=== PATIENT | male | born 1960 | race Two or more races ===

== ENCOUNTER 2025-07-25 13:28 | Inpatient (IN) | payer OTHER ==
[~2025-07-25] VITALS: Ht 175.3 cm; Wt 86.2 kg
[~2025-07-25 13:28] MED LIST: LORAZEPAM 1 MG TABLET FOR AGITATION PO PRN
[2025-07-25] MEDS ORDERED: ACETAMINOPHEN ES 500 MG TABLET PO PRN (17:30)
[2025-07-25] MEDS ORDERED: MAGNESIUM HYDROXIDE 30 ML UDC PO PRN (17:30)
[2025-07-25] MEDS ORDERED: IBUPROFEN 200 MG TABLET PO PRN (17:30)
[2025-07-25] MEDS ORDERED: MAG HYDROX/AL HYDROX/SIMETH 30 ML UDC PO PRN (17:30)
[2025-07-25] MEDS ORDERED: LORAZEPAM 1 MG TABLET FOR AGITATION PO PRN (17:30)
[2025-07-25] MEDS: RISPERDAL 3 MG PO SCH (22:00)
[2025-07-26 08:00] VITALS: BP 139/75; TEMP 98.1; O2SAT 97
[2025-07-26 20:00] VITALS: BP 124/78; TEMP 98.1; O2SAT 96
[2025-07-27 09:00] VITALS: BP 140/90; TEMP 97.9; O2SAT 98
[2025-07-27 20:00] VITALS: BP 133/73; TEMP 97.9; O2SAT 97
[2025-07-28 20:00] VITALS: BP 127/80; TEMP 98.1; O2SAT 96
[2025-07-29 08:03] VITALS: BP 131/82; TEMP 98; O2SAT 98
[2025-07-29 17:45] VITALS: BP 125/83; TEMP 98.3; O2SAT 98
[2025-07-29 20:00] VITALS: BP 122/82; TEMP 97.9; O2SAT 96
[2025-07-30 08:00] VITALS: BP 121/94; TEMP 97.9; O2SAT 95
[2025-07-30 16:45] VITALS: BP 119/93; TEMP 98.2; O2SAT 95
[2025-07-30 20:16] VITALS: BP 134/80; TEMP 98.5; O2SAT 97
[2025-07-31 08:00] VITALS: BP 125/75; TEMP 97.9; O2SAT 96
[2025-07-31 19:38] VITALS: BP 125/82; TEMP 97.9; O2SAT 96
[2025-07-31] MEDS: ZOLPIDEM TARTRATE 10 MG TABLET PO PRN (20:47)
[2025-08-01 08:17] VITALS: BP 121/78; TEMP 98; O2SAT 95
[2025-08-01 20:00] VITALS: BP 118/77; TEMP 98.4; O2SAT 97
[2025-08-02 20:00] VITALS: BP 124/82; TEMP 98.4; O2SAT 99
[2025-08-03 08:00] VITALS: BP 115/85; TEMP 98.6; O2SAT 97
[2025-08-03 20:00] VITALS: BP 113/72; TEMP 98.2; O2SAT 97
[2025-08-04 08:00] VITALS: BP 109/63; TEMP 98.3; O2SAT 98
[2025-08-04 20:00] VITALS: BP 112/72; TEMP 98.1; O2SAT 97
[2025-08-05 08:15] VITALS: BP 124/86; TEMP 97.9; O2SAT 95
[2025-08-05 20:00] VITALS: BP 116/80; TEMP 98.4; O2SAT 97
[2025-08-06 07:40] VITALS: BP 112/72; TEMP 98.5; O2SAT 98
[2025-08-06 20:00] VITALS: BP 113/64; TEMP 98.2; O2SAT 96
[2025-08-07 20:00] VITALS: BP 107/73; TEMP 98.1; O2SAT 96
[2025-08-08 08:00] VITALS: BP 114/82; TEMP 98.1; O2SAT 96
[2025-08-08] MEDS ORDERED: LORAZEPAM 1 MG TABLET FOR AGITATION PO PRN (13:00)
[2025-08-08 20:00] VITALS: BP 109/74; TEMP 98.6; O2SAT 96
[2025-08-08] MEDS: INVEST MED OTSUKA 382-201-00035 PO SCH (20:00)
[2025-08-09 20:00] VITALS: BP 110/76; TEMP 97.9; O2SAT 95
[2025-08-10 08:00] VITALS: BP 129/75; TEMP 97.9; O2SAT 96
[2025-08-10 20:00] VITALS: BP 132/77; TEMP 98.2; O2SAT 97
[2025-08-11 08:00] VITALS: BP 132/79; TEMP 98.4; O2SAT 99
[2025-08-11 20:00] VITALS: BP 117/61; TEMP 98.2; O2SAT 96
[2025-08-12 20:00] VITALS: BP 117/70; TEMP 98.4; O2SAT 96
[2025-08-12] MEDS: ZOLPIDEM TARTRATE 10 MG TABLET PO PRN (22:00)
[2025-08-13 08:22] VITALS: BP 139/88; TEMP 98.9; O2SAT 96
[2025-08-13 20:00] VITALS: BP 121/76; TEMP 98.1; O2SAT 95
[2025-08-14 20:11] VITALS: BP 127/75; TEMP 98.2; O2SAT 96
[2025-08-15 17:50] VITALS: BP 118/83; TEMP 98.6; O2SAT 97
[2025-08-15 20:00] VITALS: BP 126/84; TEMP 98.3; O2SAT 99
[2025-08-16 08:15] VITALS: BP 122/67; TEMP 97.9; O2SAT 96
[2025-08-16] MEDS ORDERED: LORAZEPAM 1 MG TABLET FOR AGITATION PO PRN (13:00)
[2025-08-16 20:00] VITALS: BP 119/66; TEMP 98.2; O2SAT 100
[2025-08-16] MEDS: ZOLPIDEM TARTRATE 10 MG TABLET PO PRN (21:00)
[2025-08-17 18:54] VITALS: BP 119/66; TEMP 98.4; O2SAT 100
[2025-08-17 20:00] VITALS: BP 127/75; TEMP 98.4; O2SAT 97
[2025-08-18 20:00] VITALS: BP 106/70; TEMP 98; O2SAT 97
[2025-08-19 08:00] VITALS: BP 110/72; TEMP 98.7; O2SAT 96
[2025-08-19 18:00] VITALS: BP 115/68; TEMP 98.4; O2SAT 98
[2025-08-19 20:00] VITALS: BP 108/70; TEMP 98.1; O2SAT 96
[2025-08-20 08:00] VITALS: BP 110/74; TEMP 98.1; O2SAT 97
[2025-08-20 16:30] VITALS: BP 116/82; TEMP 98.2; O2SAT 98
[2025-08-20 20:00] VITALS: BP 116/80; TEMP 98.2; O2SAT 98
[2025-08-21 08:00] VITALS: BP 113/70; TEMP 98.1; O2SAT 96
[2025-08-21 15:30] VITALS: BP 117/72; TEMP 98.4; O2SAT 96
[2025-08-21 20:00] VITALS: BP 121/76; TEMP 98.1; O2SAT 98
[2025-08-22 08:00] VITALS: BP 107/70; TEMP 98.2; O2SAT 98
[2025-08-22 19:20] VITALS: BP 120/82; TEMP 98.2; O2SAT 98
[2025-08-22 20:00] VITALS: BP 114/74; TEMP 98.2; O2SAT 96
[2025-08-23] MEDS ORDERED: LORAZEPAM 1 MG TABLET FOR AGITATION PO PRN (13:00)
[2025-08-23 20:00] VITALS: BP 129/71; TEMP 97.8; O2SAT 98
[2025-08-23] MEDS: ZOLPIDEM TARTRATE 10 MG TABLET PO PRN (21:12)
[2025-08-24 20:00] VITALS: BP 109/66; TEMP 98.2; O2SAT 96
[2025-08-25 08:15] VITALS: BP 114/74; TEMP 97.9; O2SAT 96
[2025-08-25 18:17] VITALS: BP 119/82; TEMP 97.8
[2025-08-25 20:00] VITALS: BP 115/71; TEMP 98.2; O2SAT 97
[2025-08-26 08:16] VITALS: BP 110/74; TEMP 97.9; O2SAT 97
[2025-08-26 20:00] VITALS: BP 127/76; TEMP 98.2; O2SAT 97
[2025-08-27 08:00] VITALS: BP 125/72; TEMP 98.2; O2SAT 97
[2025-08-27 20:13] VITALS: BP 116/77; TEMP 97.7; O2SAT 100
[2025-08-28 08:00] VITALS: BP 108/73; TEMP 97.9; O2SAT 96
[2025-08-28 20:49] VITALS: BP 106/72; TEMP 98.4; O2SAT 96
[2025-08-29 08:00] VITALS: BP 111/79; TEMP 97.7; TEMP 97.9
[2025-08-29 20:00] VITALS: BP 124/69; TEMP 98.1; O2SAT 98
[2025-08-30 07:39] VITALS: BP 131/83; TEMP 98.1; O2SAT 97
[2025-08-30] MEDS ORDERED: LORAZEPAM 1 MG TABLET FOR AGITATION PO PRN (13:00)
[2025-08-30 17:00] VITALS: BP 112/83; TEMP 98.3; O2SAT 97
[2025-08-30 20:00] VITALS: BP 112/68; TEMP 98.1; O2SAT 96
[2025-08-30] MEDS: ZOLPIDEM TARTRATE 10 MG TABLET PO PRN (20:54)
[2025-08-31 08:00] VITALS: BP 123/71; TEMP 98.6; O2SAT 98
[2025-08-31 20:00] VITALS: BP 122/76; TEMP 98.2; O2SAT 96
[2025-09-01 08:00] VITALS: BP 118/74; TEMP 97.9; O2SAT 97
[2025-09-01 20:00] VITALS: BP 115/64; TEMP 97; O2SAT 97
[2025-09-02 20:09] VITALS: BP 127/77; TEMP 97.7; O2SAT 99
[2025-09-03 08:00] VITALS: BP 111/70; TEMP 97.7; O2SAT 96
[2025-09-03 20:06] VITALS: BP 116/71; TEMP 98.2; O2SAT 97
[2025-09-04 08:00] VITALS: BP 111/87; TEMP 98.2; O2SAT 100
[2025-09-04 20:00] VITALS: BP 117/73; TEMP 98; O2SAT 97
[2025-09-05 18:47] VITALS: BP 125/75; TEMP 98; O2SAT 97
[2025-09-05 20:07] VITALS: BP 117/84; TEMP 98.1; O2SAT 99
[2025-09-06 08:02] VITALS: BP 116/72; TEMP 97.8; O2SAT 99
[2025-09-06] MEDS ORDERED: LORAZEPAM 1 MG TABLET FOR AGITATION PO PRN (13:00)
[2025-09-06 20:04] VITALS: BP 121/66; TEMP 97.9; O2SAT 96
[2025-09-06] MEDS: ZOLPIDEM TARTRATE 10 MG TABLET PO PRN (21:02)
[2025-09-07 08:00] VITALS: BP 120/64; TEMP 98; O2SAT 98
[2025-09-07 20:00] VITALS: BP 138/75; TEMP 98.2; O2SAT 98
[2025-09-07] MEDS ORDERED: INVEST MED OTSUKA 382-201-00035 PO SCH (20:00)
[2025-09-08 07:50] VITALS: BP 106/78; TEMP 97.9; O2SAT 97
[2025-09-08 20:11] VITALS: BP 127/79; TEMP 97.9; O2SAT 96
[2025-09-09 08:00] VITALS: BP 138/89; TEMP 98.1
[2025-09-09 17:35] VITALS: BP 136/98; TEMP 98.1
[2025-09-09 20:00] VITALS: BP 118/73; TEMP 98.2; O2SAT 98
[2025-09-10 08:00] VITALS: BP 116/74; TEMP 98.1; O2SAT 98
[2025-09-10 20:00] VITALS: BP 126/84; TEMP 97.6; O2SAT 99
[2025-09-11 08:00] VITALS: BP 127/81; TEMP 98; O2SAT 99
[2025-09-11 20:00] VITALS: BP 119/69; TEMP 98.2; O2SAT 97
[2025-09-12 14:00] VITALS: BP 109/68; TEMP 98.2
[2025-09-12 18:00] VITALS: BP 116/76; TEMP 98.3
[2025-09-13] MEDS ORDERED: LORAZEPAM 1 MG TABLET FOR AGITATION PO PRN (13:00)
[2025-09-13 20:01] VITALS: BP 110/69; TEMP 98; O2SAT 96
[2025-09-13] MEDS: ZOLPIDEM TARTRATE 10 MG TABLET PO PRN (21:06)
[2025-09-14 08:00] VITALS: BP 111/80; TEMP 97.8
[2025-09-14 18:00] VITALS: BP 124/77; TEMP 98; O2SAT 99
[2025-09-14 20:00] VITALS: BP 110/73; TEMP 98.6; O2SAT 96
[2025-09-15 07:57] VITALS: BP 122/79; TEMP 98; O2SAT 97
[2025-09-15 19:40] VITALS: BP 119/77; TEMP 98.2; O2SAT 96
[2025-09-16 08:00] VITALS: BP 124/85; TEMP 98; O2SAT 96
[2025-09-16 20:00] VITALS: BP 121/75; TEMP 98.1; TEMP 98.4; O2SAT 98
[2025-09-17 08:58] VITALS: BP 116/71; TEMP 97.9; O2SAT 95
[2025-09-17 18:22] VITALS: BP 121/72; TEMP 98.2; O2SAT 96
[2025-09-17 20:00] VITALS: BP_SYST 117; BP_SYST 149; BP_DIAS 70; BP_DIAS 99; TEMP 97.9; TEMP 98.1; O2SAT 95; O2SAT 97
[2025-09-18 07:00] VITALS: BP 119/65; TEMP 97.7; O2SAT 97
[2025-09-18 20:11] VITALS: BP 116/70; TEMP 98.1; O2SAT 96
[2025-09-19 08:00] VITALS: BP 110/72; TEMP 97.3; O2SAT 96
[2025-09-19 20:00] VITALS: BP 110/67; TEMP 98.2; TEMP 98.6; O2SAT 96
[2025-09-20 08:30] VITALS: BP 119/79; TEMP 97.7; O2SAT 97
[2025-09-20] MEDS ORDERED: LORAZEPAM 1 MG TABLET FOR AGITATION PO PRN (13:00)
[2025-09-20 20:00] VITALS: BP 117/67; TEMP 98.1; O2SAT 96
[2025-09-20] MEDS: ZOLPIDEM TARTRATE 10 MG TABLET PO PRN (21:00)
[2025-09-21 08:00] VITALS: BP 130/88; TEMP 97.9; O2SAT 97
[2025-09-21 20:00] VITALS: BP 116/67; TEMP 97.7; O2SAT 96
[2025-09-21] MEDS: RISPERIDONE 1 MG PO SCH (21:38)
[2025-09-22 08:00] VITALS: BP 119/77; TEMP 97.7; O2SAT 98
[2025-09-22 21:22] VITALS: BP 115/85; TEMP 98.4; O2SAT 97
[2025-09-22] MEDS: RISPERIDONE 1 MG PO SCH (21:29)
[2025-09-22 23:07] VITALS: BP 115/85; TEMP 98.4; O2SAT 97
[2025-09-22 23:58] VITALS: BP 115/85; TEMP 98.4; O2SAT 97
[2025-09-23 07:00] VITALS: BP 118/75; TEMP 97.9; O2SAT 94
[2025-09-23 20:00] VITALS: BP 116/69; TEMP 97.9; O2SAT 98
[2025-09-24 07:00] VITALS: BP 125/72; TEMP 97.9; O2SAT 95
[2025-09-24 08:00] VITALS: BP 125/72; TEMP 97.9; O2SAT 95
[2025-09-24 20:00] VITALS: BP 116/69; TEMP 97.5; O2SAT 95
[2025-09-24] MEDS: HOME MED MISCELLANEOUS (RISPERIDONE 3MG) PO SCH (21:45)
[2025-09-25 08:00] VITALS: BP 115/74; TEMP 97.7; O2SAT 96
[2025-09-26 08:00] VITALS: BP 118/78; TEMP 97.3; O2SAT 99
[2025-09-26 20:00] VITALS: BP 120/72; TEMP 98.4; O2SAT 96
== END 2025-09-27 09:00 | disposition home or self-care (01) | DRG 951 ==
LOC: MEDSG2 16:14 → MED 09-16 11:01
PROVIDERS: ADMIT Psychiatry & Neurology Psychiatry; ATTEND Psychiatry & Neurology Psychiatry
DX: Z00.6 Encounter for examination for normal comparison and control in clinical research program (principal); F20.0 Paranoid schizophrenia; Z79.899 Other long term (current) drug therapy
CPT/HCPCS: G0378